=== PATIENT | male | born 1995 | race Two or more races ===

== ENCOUNTER 2018-03-23 08:04 | Emergency (ER) | payer MEDICAID, OTHER ==
[~2018-03-23] VITALS: Ht 172.7 cm; Wt 69.0 kg
[~2018-03-23 08:04] MED LIST: DIPH-423 PO; ONDA4TAB12 PO; ONDA4TAB9 PO; PHE12.5T PO; POTA20TA19 PO; SUCR1TAB PO
[2018-03-23 08:14] VITALS: BP 143/88
== END 2018-03-23 09:05 | disposition home or self-care (01) ==
LOC: ER 08:05
DX: L98.8 Other specified disorders of the skin and subcutaneous tissue (principal); F12.90 Cannabis use, unspecified, uncomplicated; Z79.899 Other long term (current) drug therapy
CPT/HCPCS: 99281

== ENCOUNTER 2018-03-26 12:57 | Emergency (ER) | payer MEDICAID, OTHER ==
[~2018-03-26] VITALS: Ht 172.7 cm; Wt 84.0 kg
[2018-03-26 13:15] VITALS: BP 143/98
[2018-03-26] MEDS ORDERED: ondansetron 4mg rapidly disintigrating tab PO ONE (13:30)
[2018-03-26] MEDS ORDERED: LORazepam 1 MG tablet PO ONE (13:30)
[2018-03-26] MEDS ORDERED: ONDA4TAB12 PO (13:33)
[2018-03-26] MEDS ORDERED: LORA1TAB PO (13:33)
== END 2018-03-26 14:23 | disposition home or self-care (01) ==
LOC: ER 12:57
DX: F41.9 Anxiety disorder, unspecified (principal); F12.90 Cannabis use, unspecified, uncomplicated; Z79.899 Other long term (current) drug therapy
CPT/HCPCS: 99284

== ENCOUNTER 2018-04-04 07:50 | Emergency (ER) | payer MEDICAID, OTHER ==
[~2018-04-04] VITALS: Ht 172.7 cm; Wt 81.8 kg
[~2018-04-04 07:50] MED LIST changes: +LORA1TAB PO
[2018-04-04] MEDS ORDERED: diphenhydrAMINE 50 mg/ml inj IV ONE (08:20)
[2018-04-04] MEDS ORDERED: metoclopramide 5 mg/ml inj IV ONE (08:20)
[2018-04-04] MEDS ORDERED: LORazepam 2 mg/ml vial IV ONE (08:20)
[2018-04-04] MEDS ORDERED: normal saline 1000ML IV soln IVB ONE ×2 (08:20)
[2018-04-04 08:23] LABS: BASOPHILS # (AUTO) 0.1 X10'3 (0-0.2); BASOPHILS % (AUTO) 1.1 % (0-1); EOSINOPHILS # (AUTO) 0.1 X10'3 (0-0.9); EOSINOPHILS % (AUTO) 1.2 % (0-6); HEMATOCRIT 48.3 % (42.0-52.0); HEMOGLOBIN 16.5 g/dl (14.0-17.9); LYMPHOCYTES # (AUTO) 1.2 X10'3 (1.1-4.8); MEAN CORPUSCULAR HEMOGLOBIN 30.6 PG (27.0-31.0); MEAN CORPUSCULAR HGB CONC 34.1 % (33.0-36.5); MEAN CORPUSCULAR VOLUME 89.5 FL (78-98); MEAN PLATELET VOLUME 6.6 FL (7.4-10.4); MONOCYTES # (AUTO) 0.6 X10'3 (0-0.9); MONOCYTES % (AUTO) 7.4 % (2-12); NEUTROPHILS # (AUTO) 6.3 X10'3 (1.8-7.7); NEUTROPHILS % (AUTO) 75.3 % (42-75); PLATELET COUNT 298 X10'3 (140-440); RED CELL DISTRIBUTION WIDTH 13.8 % (11.5-14.5); WHITE BLOOD COUNT 8.3 X10'3 (4.5-11.0)
[2018-04-04 08:36] LABS: ALANINE AMINOTRANSFERASE 25 U/L (12-78); ALBUMIN 4.6 G/DL (3.4-5.0); ALBUMIN/GLOBULIN RATIO 1.2 (1.1-1.5); ALKALINE PHOSPHATASE 67 IU/L (20-180); ANION GAP 10 (8-16); ASPARTATE AMINO TRANSFERASE 13 U/L (10-37); BLOOD UREA NITROGEN 10 MG/DL (7-18); BUN/CREATININE RATIO 9.8 (5.4-32.0); CALCIUM 9.4 MG/DL (8.5-10.1); CHLORIDE 100 MMOL/L (99-107); CREATININE 1.02 MG/DL (0.60-1.10); GLUCOSE 108 MG/DL (70-104); INR 1.1 INR; POTASSIUM 3.6 MMOL/L (3.5-5.1); PROTHROMBIN TIME 10.9 SECONDS (9.0-12.0); SODIUM 137 MMOL/L (135-145); TOTAL CARBON DIOXIDE 26.8 MMOL/L (24-32); TOTAL PROTEIN 8.3 G/DL (6.4-8.2); eGFR > 90 ML/MIN
[2018-04-04 09:01] LABS: CLARITY,URINE CLEAR (Clear); COLOR,URINE YELLOW (Yellow); GLUCOSE, URINE NEGATIVE (Neg); KETONES,URINE 40 mg/dl (Neg); LEUKOCYTE ESTERASE ,URINE NEGATIVE (Neg); NITRITES, URINE NEGATIVE (Neg); OCCULT BLOOD,URINE NEGATIVE (Neg); PH,URINE 6.5 (4.8-8.0); PROTEIN,URINE NEGATIVE (Neg); UA COLLECTION TYPE CLN CATCH MIDSTREAM; UROBILINOGEN,URINE 0.2 E.U/dL (0.2-1.0)
[2018-04-04 09:10] LABS: LIPASE 102 U/L (73-393)
[2018-04-04] MEDS ORDERED: ZIPR20CA2 PO (10:18)
[2018-04-04] MEDS ORDERED: ONDA4TAB9 PO (10:18)
[2018-04-04 10:45] VITALS: BP 116/82
== END 2018-04-04 10:49 | disposition home or self-care (01) ==
LOC: ER 07:50
DX: E86.0 Dehydration (principal); R11.2 Nausea with vomiting, unspecified; F41.9 Anxiety disorder, unspecified; R10.9 Unspecified abdominal pain; F12.90 Cannabis use, unspecified, uncomplicated; Z79.899 Other long term (current) drug therapy
CPT/HCPCS: 36415; 80053; 81003; 83690; 84443; 85025; 85610; 96361; 96374; 96375; 99285; J1200; J2060; J2765; J7030